=== PATIENT | male | born 1950 | race Caucasian/White ===

== ENCOUNTER 2017-07-10 09:33 | Inpatient (IN) | payer OTHER ==
[2017-07-10 10:30] LABS: BASOPHIL 0.8 % (0-2.0); EOSINOPHIL 0.6 % (0-4.5); MCH 27.9 pg (25.7-33.7); MEAN CELL VOLUME 84.4 fl (80-96); MEAN PLT VOLUME 8.3 fl (7.5-11.1); NEUTROPHILS 73.5 % (42.8-82.8); PLATELET COUNT 314 K/MM3 (134-434); RDW 14.7 % (11.9-15.9)
--- NOTE | 2017-07-10 10:49 | PDOC ---
History of Present Illness - General History Source: Patient, Family (Son), Spouse (Fiance) Exam Limitations: No Limitations - History of Present Illness Initial Comments: 07/10/17 10:58 The patient is a 67 year old male with a significant PMH of HTN, GERD, right eye glaucoma (s/p surgery), arthritis, psoriasis, and Lyme disease who presents with fiance and son to the emergency department with worsening dizziness and confusion beginning several months ago. The patients son reports that the patient has been intermittently fatigued and dizzy since the patients glaucoma surgery a few months ago. He notes that his dizziness has become significantly worse over the past 3 days with associated vomiting, dry mouth, and reduced appetite. The patients son reports an episode yesterday in which the patient was feeding his cat and lost control of his body, falling face first and sustaining several abrasions to the face. The patient also reports double vision since his eye surgery which is aggravated by turning his head and bending down. The patients fiance reports that the patient has been generally not himself for the past 3 weeks and has become increasingly confused (80% present, 20% confused). The patient also reports significant psoriasis to the abdomen and lower extremities, which remain unchanged from normal. The patient denies chest pain, shortness of breath, headache and dizziness. Denies fever, chills,diarrhea and constipation. Denies dysuria, frequency, urgency and hematuria. Allergies: Ciprofloxacin. Cortisone. Past surgical history: Glaucoma surgery. Social history: No reported toxic habits. PCP: Dr. Eduardo Davis <Reji Jovel - Last Filed: 07/10/17 14:14> - General History Source: Patient, Family Exam Limitations: No Limitations <Reji Trevino - Last Filed: 07/17/17 10:59> - General Chief Complaint: Lightheaded Stated Complaint: vertigo Time Seen by Provider: 07/10/17 09:59 Past History <Reji Jovel - Last Filed: 07/10/17 14:14> - Past Medical History COPD: No GI Disorders: Yes (gerd) HTN: Yes Other medical history: psorriasis, lyme disease, arthritis, glaucomea - Suicide/Smoking/Psychosocial Hx Smoking History: Never smoked Have you smoked in the past 12 months: No Information on smoking cessation initiated: No Hx Alcohol Use: No Drug/Substance Use Hx: No Substance Use Type: None <Reji Trevino - Last Filed: 07/17/17 10:59> - Past Medical History Allergies/Adverse Reactions: Allergies Allergy/AdvReac Type Severity Reaction Status Date / Time ciprofloxacin [From Cipro] Allergy Verified 07/10/17 10:01 ciprofloxacin HCl Allergy Verified 07/10/17 10:01 [From Cipro] cortisone Allergy Verified 07/10/17 10:02 Home Medications: Ambulatory Orders Aspirin [ASA -] 81 mg PO DAILY 07/10/17 Calcipotriene 0.005% Top Crm [Dovonex 0.005% Cream -] 60 gm TP ASDIR 07/10/17 Metoprolol Succinate [Toprol Xl] 50 mg PO BID 07/10/17 Naproxen [Naprosyn -] 500 mg PO BID 07/10/17 Brimonidine Tartrate [Alphagan P 0.1% -] 1 drop OU TID 07/12/17 Dorzolamide HCl/Timolol Maleat [Cosopt Eye Drops] 1 drop OU BID 07/12/17 Tafluprost/Pf [Zioptan 0.0015% Eye Drops] 1 drop OU HS 07/12/17 Triamcinolone 0.1% Cream [Aristocort] 1 applic TP DAILY 07/12/17 Review of Systems - Review of Systems Able to Perform ROS?: Yes Comments:: 07/10/17 10:58 GENERAL/CONSTITUTIONAL: (+) Generalized fatigue.No fever or chills. No weakness. HEAD, EYES, EARS, NOSE AND THROAT: (+) Double vision. No ear pain or discharge. No sore throat. CARDIOVASCULAR: No chest pain or shortness of breath. RESPIRATORY: No cough, wheezing, or hemoptysis. GASTROINTESTINAL: (+) Nausea. (+) Vomiting. No diarrhea or constipation. GENITOURINARY: No dysuria, frequency, or change in urination. MUSCULOSKELETAL: No joint or muscle swelling or pain. No neck or back pain. SKIN: (+) Several abrasions to face. NEUROLOGIC: (+) Confusion. No headache, vertigo, loss of consciousness, or change in strength. ENDOCRINE: No increased thirst. No abnormal weight change. HEMATOLOGIC/LYMPHATIC: No anemia, easy bleeding, or history of blood clots. ALLERGIC/IMMUNOLOGIC: No hives or skin allergy. <Jovel,Reji - Last Filed: 07/10/17 14:14> *Physical Exam - Vital Signs Last Vital Signs Temp Pulse Resp BP Pulse Ox 99 F 105 H 18 147/85 100 07/10/17 09:35 07/10/17 09:35 07/10/17 09:35 07/10/17 09:35 07/10/17 09:35 - Physical Exam Comments: 07/10/17 10:58 GENERAL: Awake, alert, and fully oriented, in no acute distress HEAD: (+) 1x2cm. small abrasion to upper forehead. (+) 2x2cm. small abrasion to bridge of nose. EYES: PERRLA, EOMI, sclera anicteric, conjunctiva clear ENT: (+) Dry blood in right nares. (+) Dry mucosa. No septal hematoma. Auricles normal inspection, hearing grossly normal, nares patent, oropharynx clear without exudates. NECK: Normal ROM, supple, no lymphadenopathy, JVD, or masses LUNGS: Breath sounds equal, clear to auscultation bilaterally. No wheezes, and no crackles HEART: Regular rate and rhythm, normal S1 and S2, no murmurs, rubs or gallops ABDOMEN: Soft, nontender, normoactive bowel sounds. No guarding, no rebound. No masses EXTREMITIES: Normal range of motion, no edema. No clubbing or cyanosis. No cords, erythema, or tenderness. NEUROLOGICAL: Cranial nerves II through XII intact. 5/5 strength upper and lower extremities. Sensation intact throughout. No pronator drift. Finger to nose normal. Normal speech. SKIN: Warm, Dry, normal turgor, no rashes or lesions noted. <Reji Jovel - Last Filed: 07/10/17 14:14> - Vital Signs Last Vital Signs Temp Pulse Resp BP Pulse Ox 99 F 105 H 18 147/85 100 07/10/17 09:35 07/10/17 09:35 07/10/17 09:35 07/10/17 09:35 07/10/17 09:35 <Reji Trevino - Last Filed: 07/17/17 10:59> Heart Score/ECG Review #1 ECG reviewed & interpreted by me at: 09:50 07/10/17 10:49 NSR 96, no std/cecil, TWI V3, RBBB, QTC 457 msec <Reji Trevino - Last Filed: 07/17/17 10:59> ED Treatment Course - LABORATORY CBC & Chemistry Diagram: 07/10/17 10:15 07/10/17 10:15 - ADDITIONAL ORDERS Additional order review: Laboratory Results 07/10/17 10:15 PT with INR 11.50 INR 1.02 PTT (Actin FS) 32.7 07/10/17 10:15 RBC 5.64 H MCV 84.4 MCHC 33.0 RDW 14.7 MPV 8.3 Neutrophils % 73.5 Lymphocytes % 15.1 Monocytes % 10.0 Eosinophils % 0.6 Basophils % 0.8 - Consult/PCP Time Called: 11:35 Case discussed with personal care physician: Kevin Davis - Additional Consults Consult/PCP: Dr. Last (Neuro), Dr. Hooks (Opthamology) Consult/PCP: Dr. Persaud (Neurosurg) Reason/Comments: Called 4 times (12:10, 12:30, 13:10, 14:00) before receiving callback. <Reji Jovel - Last Filed: 07/10/17 14:14> - LABORATORY CBC & Chemistry Diagram: 07/12/17 06:00 07/12/17 06:00 - ADDITIONAL ORDERS Additional order review: 07/10/17 10:15 RBC 5.64 H MCV 84.4 MCHC 33.0 RDW 14.7 MPV 8.3 Neutrophils % 73.5 Lymphocytes % 15.1 Monocytes % 10.0 Eosinophils % 0.6 Basophils % 0.8 - RADIOLOGY Radiology Studies Ordered: Category Date Time Status FACIAL BONES CT W/O CONTRAST [CT] Stat CT Scan 07/10/17 10:[address] WITHOUT CONTRAST [CT] Stat CT Scan 07/10/17 10:02 Ordered CHEST X-RAY PORTABLE* [RAD] Stat Radiology 07/10/17 10:02 Ordered <Reji Trevino - Last Filed: 07/17/17 10:59> Medical Decision Making - Critical Care Time Total Critical Care Time (minutes): 45 Critical Care Statement: The care of this patient involved high complexity decision making to prevent further life threatening deterioration of the patient 's condition and/or to evaluate & treat vital organ system(s) failure or risk of failure. - Medical Decision Making 07/10/17 10:44 A portion of this note was documented by scribe services under my direction. I have reviewed the details of the note, within reason, and agree with the documentation with the following case summary and management plan written by me. Patient treated in the ED. Nursing notes are reviewed and incorporated into the medical decision-making. Vital signs reviewed. Peripheral IV access obtained by the nurse, laboratory studies are drawn and sent, reviewed and interpreted by myself. Vital Signs Temp Pulse Resp BP Pulse Ox 99 F 105 H 18 147/85 100 07/10/17 09:35 07/10/17 09:35 07/10/17 09:35 07/10/17 09:35 07/10/17 09:35 67 -year-old male with glaucoma, psoriasis, hypertension, severe arthritis on NSAIDs brought in for altered mental status, confusion. The family reports that he had a right glaucoma surgery several months ago. Since then, the patient has been endorsing intermittent vertiginous and fatigue symptoms. However, in the last several days, the patient has been recently more confused and delirious and more dizzy than usual. Today, the patient went to walk and lost balance and fell on his face. Her is questionable loss of consciousness. Patient does take NSAIDs and occasionally aspirin but no other anticoagulants. Patient has no lacerations were sustained abrasions to the face. There is no fevers or chills, cough, vomiting, diarrhea, dysuria. Patient does have pretty significant psoriasis on his lower extremities that he scratches at. The family is unsure if the erythema on his legs is chronic but the patient reports that this is unchanged. Within the differential is CVA, metabolic disarray, cardiac, neurologic, infection such as cellulitis of the lower extremity. The patient will need a head CT, facial CT, labs, urinalysis. Patient will need to evaluated with likely an MRI of the brain. Ultimately, I suspect patient admitted to the hospital for altered mental status. 07/10/17 15:05 CAT scan the head demonstrates heterogeneous space-occupying lesion center with the inferior parasagittal left frontal lobe as described above measuring proximal a 6.5 x 3.5 x 3.7 cm with small volume peripheral acute hemorrhage. There is also edema surrounding this lesion with 11 mm [id number] midline shift and compression the frontal horn of the left ventricle. Case was discussed with neurologist DR. Last and neurosurgeon Dr. Persaud. They have recommended IV Keppra and IV steroids. Initially, the patient was very resistant to IV steroids given to his refractory glaucoma. He did not want to be given this medication without the consultation of his awning maker and installer. I have spoken to his awning maker and installer Dr. Juliano Hooks [phone] who completely agrees the necessity of IV steroids and states we should give it. Patient agrees to 10 mg dexamethasone. 500 mg of IV Keppra twice a day ordered. Case is discussed with bandoleer packer Dr. Pisano which is the patient's the ICU. Case accepted by Dr. Davis. Case discussed in detail with admitting physician including history, physical exam and ancillary studies. Admitting physician has assumed care for the patient, will follow all pending diagnostics and will complete the evaluation and treatment. 07/10/17 20:18 Pt did have a moment where he seemed less responsive, speaking in one word and lethargic. We were deciding between intubating versus not intubating. However, lengthy discussion, family requested that I observe the patient before I decide to intubate. After observation, patient returned to be more alert and speaking. We had decided to defer on intubation. Patient has been moving quite a bit and anxious when in MRI. We had attempted 3 times to bring him to MRI even with ativan. However, pt is unable to tolerate. Dr. Onofre Persaud had returned to the ER and re-examined the patient. States to defer on MRI and to get Head CT with IV contrast instead. Family consents. <Reji Trevino - Last Filed: 07/17/17 10:59> *DC/Admit/Observation/Transfer - Attestations Scribe Attestion: 07/10/17 10:59 Documentation prepared by Reji Jovel, acting as medical care evaluation specialist for Reji Trevino MD. <Reji Jovel - Last Filed: 07/10/17 14:14> - Discharge Dispostion Admit: Yes <Reji Trevino - Last Filed: 07/17/17 10:59> Diagnosis at time of Disposition: Brain mass - Discharge Dispostion Disposition: TRANSFER ACUTE CARE/OTHER HOSP Condition at time of disposition: Guarded
[2017-07-10 10:51] LABS: INR 1.02 (0.82-1.09); PROTHROMBIN TIME (PATIENT) 11.5 SEC (9.98-11.88)
[2017-07-10 10:54] LABS: ACTIVATED PTT 32.7 SECONDS (26.9-34.4)
[2017-07-10 11:01] LABS: ALBUMIN 3.7 g/dl (3.4-5.0); ALK PHOS 64 U/L (45-117); ANION GAP 10 (8-16); CALCIUM 9.3 mg/dL (8.5-10.1); CO2 27 mmol/L (21-32); CPK 72 IU/L (39-308); CREATININE 1.5 mg/dL (0.7-1.3); GLUCOSE,RANDOM 126 mg/dL (74-106); SGOT/AST 20 U/L (15-37); SGPT/ALT 41 U/L (12-78); TOT PROT 7.7 g/dl (6.4-8.2)
[2017-07-10 11:05] LABS: BILIRUBIN,TOTAL 0.9 mg/dL (0.2-1.0); TROPONIN I < 0.02 ng/ml (0.00-0.05)
[2017-07-10 11:55] LABS: SALICYLATE < 4.0 mg/dl (0.0-30.0)
--- NOTE | 2017-07-10 12:03 | CONSULT ---
Consult - text type - Consultation Consultation Note: Neurology History of Present Illness The patient is a 67 year old male with a significant PMH of HTN, GERD, right eye glaucoma (s/p surgery), arthritis, psoriasis, and Lyme disease who presents with fiance and son to the emergency department with worsening dizziness and confusion beginning several months ago. The patients son reports that the patient has been intermittently fatigued and dizzy since the patients glaucoma surgery a few months ago. He notes that his dizziness has become significantly worse over the past 3 days with associated vomiting, dry mouth, and reduced appetite. The patients son reports an episode yesterday in which the patient was feeding his cat and lost control of his body, falling face first and sustaining several abrasions to the face. The patient also reports double vision since his eye surgery which is aggravated by turning his head and bending down. The patients fiance reports that the patient has been generally not himself for the past 3 weeks and has become increasingly confused (80% present, 20% confused). The patient also reports significant psoriasis to the abdomen and lower extremities, which remain unchanged from normal. The patient was seen by me in the ER and head and discussion with Dr. Trevino, we were in agreement to have completed a CT head. report and images have been reviewed re consistent with left frontal 6.5 x 3.5 x 3.7 cm growth along with acute hemorrhagic component that is 1.1 cm in size. There is cerebral edema along with sulcal effacement. There is 11mm left to right shift. 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 I spoke with Dr. Trevino and we discussed having neurosurgical consultation. I also recommended IV steroids for reduction of edema as well as Keppra for seizure prevention. This growth does explain the patient's confusion and mental status changes. A contrast enhanced MRI of the brain would be recommended. Past History - Past Medical History COPD: No GI Disorders: Yes (gerd) HTN: Yes Other medical history: psorriasis, lyme disease, arthritis, glaucomea - Suicide/Smoking/Psychosocial Hx Smoking History: Never smoked Have you smoked in the past 12 months: No Information on smoking cessation initiated: No Hx Alcohol Use: No Drug/Substance Use Hx: No Substance Use Type: None - Past Medical History Allergies/Adverse Reactions: Allergies Allergy/AdvReac Type Severity Reaction Status Date / Time ciprofloxacin [From Cipro] Allergy Verified 07/10/17 10:01 ciprofloxacin HCl Allergy Verified 07/10/17 10:01 [From Cipro] cortisone Allergy Verified 07/10/17 10:02 Home Medications: Ambulatory Orders Aspirin [ASA -] 81 mg PO DAILY 07/10/17 Calcipotriene 0.005% Top Crm [Dovonex 0.005% Cream -] 60 gm TP ASDIR 07/10/17 Metoprolol Succinate [Toprol Xl] 50 mg PO BID 07/10/17 Naproxen [Naprosyn -] 500 mg PO BID 07/10/17 Review of Systems GENERAL/CONSTITUTIONAL: (+) Generalized fatigue.No fever or chills. No weakness. HEAD, EYES, EARS, NOSE AND THROAT: (+) Double vision. No ear pain or discharge. No sore throat. CARDIOVASCULAR: No chest pain or shortness of breath. RESPIRATORY: No cough, wheezing, or hemoptysis. GASTROINTESTINAL: (+) Nausea. (+) Vomiting. No diarrhea or constipation. GENITOURINARY: No dysuria, frequency, or change in urination. MUSCULOSKELETAL: No joint or muscle swelling or pain. No neck or back pain. SKIN: (+) Several abrasions to face. NEUROLOGIC: (+) Confusion. No headache, vertigo, loss of consciousness, or change in strength. ENDOCRINE: No increased thirst. No abnormal weight change. HEMATOLOGIC/LYMPHATIC: No anemia, easy bleeding, or history of blood clots. ALLERGIC/IMMUNOLOGIC: No hives or skin allergy. *Physical Exam Vital Signs Temperature 99 F 07/10/17 09:35 Pulse Rate 105 H 07/10/17 09:35 Respiratory Rate 18 07/10/17 09:35 Blood Pressure 147/85 07/10/17 09:35 O2 Sat by Pulse Oximetry (%) 100 07/10/17 09:35 GENERAL: Awake, alert, and fully oriented, in no acute distress, irritable but cooperative HEAD: (+) 1x2cm. small abrasion to upper forehead. (+) 2x2cm. small abrasion to bridge of nose. EYES: PERRLA, EOMI, sclera anicteric, conjunctiva clear ENT: (+) Dry blood in right nares. (+) Dry mucosa. No septal hematoma. Auricles normal inspection, hearing grossly normal, nares patent, oropharynx clear without exudates. NECK: Normal ROM, supple, no lymphadenopathy, JVD, or masses LUNGS: Breath sounds equal, clear to auscultation bilaterally. No wheezes, and no crackles HEART: Regular rate and rhythm, normal S1 and S2, no murmurs, rubs or gallops ABDOMEN: Soft, nontender, normoactive bowel sounds. No guarding, no rebound. No masses EXTREMITIES: Normal range of motion, no edema. No clubbing or cyanosis. No cords, erythema, or tenderness. NEUROLOGICAL: Cranial nerves II through XII intact. 5/5 strength upper and lower extremities. Sensation intact throughout. No pronator drift. Finger to nose normal. Normal speech. SKIN: Warm, Dry, normal turgor, no rashes or lesions noted. CBCD WBC 12.0 K/mm3 (4.0-10.0) H 07/10/17 10:15 RBC 5.64 M/mm3 (4.00-5.60) H 07/10/17 10:15 Hgb 15.7 GM/dL (11.7-16.9) 07/10/17 10:15 Hct 47.6 % (35.4-49) 07/10/17 10:15 MCV 84.4 fl (80-96) 07/10/17 10:15 MCHC 33.0 g/dl (32.0-35.9) 07/10/17 10:15 RDW 14.7 % (11.9-15.9) 07/10/17 10:15 Plt Count 314 K/MM3 (134-434) 07/10/17 10:15 MPV 8.3 fl (7.5-11.1) 07/10/17 10:15 CMP Sodium 142 mmol/L (136-145) 07/10/17 10:15 Potassium 3.7 mmol/L (3.5-5.1) 07/10/17 10:15 Chloride 105 mmol/L (98-107) 07/10/17 10:15 Carbon Dioxide 27 mmol/L (21-32) 07/10/17 10:15 Anion Gap 10 (8-16) 07/10/17 10:15 BUN 21 mg/dL (7-18) H 07/10/17 10:15 Creatinine 1.5 mg/dL (0.7-1.3) H 07/10/17 10:15 Creat Clearance w eGFR 46.82 (>60) 07/10/17 10:15 Calcium 9.3 mg/dL (8.5-10.1) 07/10/17 10:15 Total Bilirubin 0.9 mg/dL (0.2-1.0) 07/10/17 10:15 AST 20 U/L (15-37) 07/10/17 10:15 ALT 41 U/L (12-78) 07/10/17 10:15 Alkaline Phosphatase 64 U/L (45-117) 07/10/17 10:15 Total Protein 7.7 g/dl (6.4-8.2) 07/10/17 10:15 Albumin 3.7 g/dl (3.4-5.0) 07/10/17 10:15 CT head reviewed as above Medical Decision Making 67 year old male with a significant PMH of HTN, GERD, right eye glaucoma (s/p surgery), arthritis, psoriasis, and Lyme disease who presents with fiance and son to the emergency department with worsening dizziness and confusion beginning several months ago. The patients son reports that the patient has been intermittently fatigued and dizzy since the patients glaucoma surgery a few months ago. He notes that his dizziness has become significantly worse over the past 3 days with associated vomiting, dry mouth, and reduced appetite. The patients son reports an episode yesterday in which the patient was feeding his cat and lost control of his body, falling face first and sustaining several abrasions to the face. The patient also reports double vision since his eye surgery which is aggravated by turning his head and bending down. The patients fiance reports that the patient has been generally not himself for the past 3 weeks and has become increasingly confused (80% present, 20% confused). The patient also reports significant psoriasis to the abdomen and lower extremities , which remain unchanged from normal. Left frontal 6.5 x 3.5 x 3.7 cm growth along with acute hemorrhagic component that is 1.1 cm in size. Cerebral edema along with sulcal effacement. 11mm left to right shift. Possibly glial neoplasm. IV steroids recommended for reduction of edema Keppra 500mg twice daily for seizure prevention. Contrast enhanced MRI of the brain would be recommended NSGY consult recommended BP control for acute hemoraghic component, recommend maintaining close to or below 140/90 ICU monitoring Hold ASA/antiplatelet medication for now Repeat CT head in AM or if acute deterioration in mental status Critical care time 45 minutes
[2017-07-10] MEDS ORDERED: levETIRAcetam 500 MG/5 ML INJECTION VIAL IVPB ONE (12:57)
--- NOTE | 2017-07-10 13:24 | HP ---
Admitting History and Physical - Primary Care Physician PCP: Kevin Davis - Admission History of Present Illness: The patient is a 67 year old male with a significant PMH of HTN, GERD, right eye glaucoma (s/p surgery), arthritis, psoriasis, and Lyme disease who presents with fiance and son to the emergency department with worsening dizziness and confusion beginning several months ago. The patients son reports that the patient has been intermittently fatigued and dizzy since the patients glaucoma surgery a few months ago. He notes that his dizziness has become significantly worse over the past 3 days with associated vomiting, dry mouth, and reduced appetite. The patients son reports an episode yesterday in which the patient was feeding his cat and lost control of his body, falling face first and sustaining several abrasions to the face. The patient also reports double vision since his eye surgery which is aggravated by turning his head and bending down. The patients fiance reports that the patient has been generally not himself for the past 3 weeks and has become increasingly confused (80% present, 20% confused). The patient also reports significant psoriasis to the abdomen and lower extremities, which remain unchanged from normal. The patient denies chest pain, shortness of breath, headache and dizziness. Denies fever, chills,diarrhea and constipation. Denies dysuria, frequency, urgency and hematuria. denies abdominal pain Allergies: Ciprofloxacin. Cortisone. Past surgical history: Glaucoma surgery. Social history: No reported toxic habits. I was called earlier by patient's fianc--regarding patient's symptoms and I advised them to take him to the emergency room as soon as possible CAT scan done in the emergency room showed left frontal mass with mass effect-- With small hemorrhagic component Patient seen by me in the emergency room Family at bedside Case discussed with emergency room physician also I also discussed CAT scan findings with patient and patient's family Neurosurgical consult also requested patient was last seen in office in December 2016 for right eye glaucoma surgery clearance--patient did not follow-up to that History Source: Patient, Family Member Limitations to Obtaining History: Clinical Condition - Smoking History Smoking history: Never smoked Have you smoked in the past 12 months: No - Alcohol/Substance Use Hx Alcohol Use: No Home Medications - Allergies Allergies/Adverse Reactions: Allergies Allergy/AdvReac Type Severity Reaction Status Date / Time ciprofloxacin [From Cipro] Allergy Verified 07/10/17 10:01 ciprofloxacin HCl Allergy Verified 07/10/17 10:01 [From Cipro] cortisone Allergy Verified 07/10/17 10:02 - Home Medications Home Medications: Ambulatory Orders Aspirin [ASA -] 81 mg PO DAILY 07/10/17 Calcipotriene 0.005% Top Crm [Dovonex 0.005% Cream -] 60 gm TP ASDIR 07/10/17 Metoprolol Succinate [Toprol Xl] 50 mg PO BID 07/10/17 Naproxen [Naprosyn -] 500 mg PO BID 07/10/17 Family Disease History - Family Disease History Family History: Unremarkable Family Disease History: Other: Mother (leukemia and breast cancer) Review of Systems Findings/Remarks: see council - Review of Systems Constitutional: reports: Weakness Eyes: denies: No Symptoms Physical Examination Vital Signs: Vital Signs Temperature 99 F 07/10/17 09:35 Pulse Rate 105 H 07/10/17 09:35 Respiratory Rate 18 07/10/17 09:35 Blood Pressure 147/85 07/10/17 09:35 O2 Sat by Pulse Oximetry (%) 100 07/10/17 09:35 Constitutional: Yes: No Distress, Other (looks weak) Neck: Yes: Supple, Trachea Midline Cardiovascular: Yes: Regular Rate and Rhythm Respiratory: Yes: CTA Bilaterally Gastrointestinal: Yes: Normal Bowel Sounds, Soft Edema: No Integumentary: Yes: Erythema (consistant with psoriasis) Neurological: Yes: Alert (non focal- moves all extremities) Psychiatric: Yes: Alert Labs: CBC, BMP 07/10/17 10:15 07/10/17 10:15 Imaging - Results Chest X-ray: Report Reviewed Cat Scan: Report Reviewed EKG: Report Reviewed Problem List - Problems (1) Brain mass Code(s): G93.9 - DISORDER OF BRAIN, UNSPECIFIED (2) Glaucoma Code(s): H40.9 - UNSPECIFIED GLAUCOMA (3) Hypertension Code(s): I10 - ESSENTIAL (PRIMARY) HYPERTENSION (4) Psoriasis Code(s): L40.9 - PSORIASIS, UNSPECIFIED Assessment/Plan Discussed with emergency room physician in detail. Neurology consultation noted/ appreciated will discuss with Dr. Last. Consider transfer to tertiary care center Urgent neurosurgical evaluation--Dr. Hollis Persaud. 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 will follow. cc time 40 min.
[2017-07-10] MEDS: levETIRAcetam 500 MG/5 ML INJECTION VIAL IVPB SCH ×2 (13:30→21:54)
[2017-07-10] MEDS ORDERED: DEXAMETHASONE SOD PHOSPHATE 20 MG/5 ML VIAL IVPB ONE (14:33)
[2017-07-10] MEDS ORDERED: ACETAMINOPHEN 1000 MG/100 ML VIAL (NON FORMULARY) IVPB ONE (14:33)
[2017-07-10 15:09] LABS: URINE APPEARANCE SLCLOUDY; URINE BILIRUBIN NEGATIVE (NEGATIVE); URINE BLOOD NEGATIVE (NEGATIVE); URINE COLOR YELLOW; URINE GLUCOSE (UA) NEGATIVE (NEGATIVE); URINE KETONE 1+ (NEGATIVE); URINE NITRITE NEGATIVE (NEGATIVE); URINE UROBILINOGEN NEGATIVE mg/dL (0.2-1.0)
--- NOTE | 2017-07-10 15:11 | PN ---
Progress Note (short form) - Note Progress Note: NEUROSURGERY CONSULT DICTATED Pt examined Chart reviewed History obtained Significant other and son at bedside in ED H/o HTN, GERD, right eye glaucoma (recent surgery), arthritis, psoriasis, and Lyme's disease who presents with worsening dizziness and confusion beginning several months ago after glaucoma surgery. He notes that his dizziness has become significantly worse over the past 3 days with associated H/A, vomiting. Pt had become more confused and lost balance and fell several times in the past few weeks. Denies systemic malignancy, fever/chill, recent infections, or extensive dental work. PE: T 99, AF, 147/85,VSS HEENT- facial/nasal abrasions; Neck- supple; Cor- RR; Lungs- CTA B; Abd- benign , + BS, mildly obese; Ext- no sign of DVT; psoriasis A/A/Ox3 CN- intact; Motor- at least 4+ without drift; Sensation- intact LT, vibration; DTR- 1+; toes downgoing WBC 12, Hgb 15.7, platelet 374k; Cr 1.5; BUN 21, eGFR 46.82 CT head- L frontal 6 x4 cm hypodense lesion with surrounding hypodense rim, 1 cm L to R shift frontally R/o GBM vs abscess, though no history or risks factors of infection/cerebral abscess Brain MRI with and without jessie recommended, keep well hydrated given marginal renal function Decadron/protonix/keppra recommended Will likely need biopsy to establish diagnosis Baseline blood cultures and urine culture D/w pt and family at bedside Care D/w Dr Trevino
[2017-07-10 15:12] LABS: URINE MARIJUANA THC NEGATIVE ng/ml (CUTOFF=50); URINE PROTEIN 1+ (NEGATIVE)
[2017-07-10] MEDS ORDERED: DEXAMETHASONE SOD PHOSPHATE 10 MG/1 ML VIAL ONE ×2 (15:12→15:16)
[2017-07-10 15:21] LABS: URINE MUCUS FEW; URINE RBC 1; URINE WBC < 1
[2017-07-10] MEDS ORDERED: ACETAMINOPHEN INJECTION 100 ML IVPB ONE (15:23)
[2017-07-10] MEDS ORDERED: ETOMIDATE 20 MG/10 ML AMPUL IVPUSH ONE (15:35)
[2017-07-10] MEDS ORDERED: SUCCINYLCHOLINE CHLORIDE 200 MG/10 ML VIAL ONE (15:42)
[2017-07-10] MEDS ORDERED: SODIUM CHLORIDE 1,000 ML IV STA (17:48)
[2017-07-10] MEDS ORDERED: LORazepam 2 MG/ML SDV VIAL ONE ×2 (18:17→19:36)
[2017-07-10 18:27] VITALS: BMI 28.5
[2017-07-10 20:10] LABS: URINE LEUK ESTERASE Negative (NEGATIVE)
--- NOTE | 2017-07-10 21:03 | CONS ---
DATE OF CONSULTATION: 07/10/2017 REQUESTING PHYSICIAN: Dr. Trevino with the emergency department. CHIEF COMPLAINT: Headache and vomiting with intracranial lesion. HISTORY OF PRESENT ILLNESS: The patient is a 67-year-old, right-handed male with a history of hypertension, arthritis, psoriasis, Lyme disease, and gastroesophageal reflux disease, and recent right eye glaucoma surgery, who complains of several weeks' history of increasing dizziness and confusion for several weeks' duration. This mostly occurred since the glaucoma procedure. He denies headache until a few days ago. He also has associated vomiting. He has fallen a few times after losing balance over the past few weeks. He denied any fever, chills, or any recent infection. He has no history of primary sustained malignancy. He has not undergone any recent extensive dental work by report. PAST MEDICAL HISTORY: Significant for hypertension, glaucoma status post surgery, psoriasis, arthritis, Lyme disease, and gastroesophageal reflux disease. CURRENT MEDICATIONS: Include baby aspirin, Dovonex cream, metoprolol, and naproxen. ALLERGIES: CIPROFLOXACIN and CORTISONE. SOCIAL HISTORY: He does not smoke or drink. He is retired. He lives at home. FAMILY HISTORY: Noncontributory. REVIEW OF SYSTEMS: Otherwise negative for other major constitutional, head and neck, cardiovascular, pulmonary, gastrointestinal, genitourinary, endocrinological, neurological, and psychological problems except for the above. PHYSICAL EXAMINATION: Vital Signs: Temperature is 99. Blood pressure is 147/85 with pulse rate of 105. O2 saturation is 100% on room air. General: He is accompanied by his fiance and his son in the emergency department. HEENT: Examination shows him to be normocephalic. He does have several abrasions over the nose and the forehead from a fall earlier today. Neck: Supple with no carotid bruit. Coronary: Examination demonstrated a regular rhythm. Lungs: Clear bilaterally. Abdomen: Benign. Extremities: Examination showed no signs of DVT. Distal pulses are 1+ and symmetric. There is no obvious fracture. Neurologic: He is awake, alert, and oriented x3. Cranial nerve examination is intact 2-12. Motor examination shows at least 4+/5 strength in the bilateral upper and lower extremities without drift. Sensory examination is intact to light touch and vibratory sensation. Deep tendon reflexes are 1+ throughout. There is no pathologic long tract sign. Gait is not tested for safety reasons. Cerebellar examination demonstrated intact [id number] examination. LABORATORY: Examination shows a sodium to be 142 and potassium to be 3.7. BUN is 21 and creatinine 1.5. Estimated GFR is 46.82. Glucose is 126. Troponin is less than 0.02, INR is 1.02, and PTT is 32.7. White blood cell count is 12, hemoglobin is 15.7, platelet count is 314,000. Urinalysis shows 1+ ketone and 1+ protein. Leukocyte esterase is pending as is WBC and RBC. CT scan of the head demonstrated a hypodense left white matter medial frontal lesion of approximately 6 x 4 cm. There is also a hyperdense rim along the periphery, mostly posterior and medially as well as laterally. There is vasogenic edema. There is an approximately 10-mm [id number] shift anteriorly. There is slight mass effect on the frontal horn of the left lateral ventricle. IMPRESSION: 1. Left frontal lesion with surrounding hyperdense rim, rule out glioblastoma versus a brain abscess. 2. Hypertension. 3. Psoriasis. 4. Osteoarthritis. 5. Gastroesophageal reflux disease. RECOMMENDATIONS: The patient presents with several weeks' history including confusion and dizziness. He has also been falling. Examination is relatively nonfocal. A CT scan of the head demonstrated a left medial frontal lesion of approximately 6 x 4 cm with surrounding hypodense rim. There is also left-to- right shift as a result of the edema and mass effect. 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 The patient should undergo an MRI of the brain with and without gadolinium to better delineate the nature of the disease. Decadron and Protonix should also be considered to treat the edema. The patient will likely require surgical intervention at least for a biopsy to establish diagnosis. Baseline blood culture and urine culture will be ordered. The patient should be kept on Keppra for seizure prophylaxis. The above was discussed with the patient and his family at the bedside. All questions were answered. GORDO BOND M.D. YAZMIN/[id number] MTDD
--- NOTE | 2017-07-10 21:18 | CONSULT ---
Consult Consult Specialty:: Pulm/CCM Reason for Consultation:: brain mass - History of Present Illness Chief Complaint: AMS, n/v, falls History of Present Illness: This is a 67 yo man PMH: HTN, glaucoma, arthritis, psoriasis and GERD with several months of increasing confusion with progressive dizziness, nausea and vomiting (NBNB) over the last three days resulting in a multiple falls and facial trauma. Patient was brought to ED for evaluation. In ED patient had small 1x2cm abrasion to upper forehead and 2x2cm. small abrasion to bridge of nose. CT head showed a large left frontal mass with small hemorrhagic component and mass effect. Neurosurgery was consulted and recommended MRI which they were unable to perform 2/2 agitation despite ativan pushes. Keppra was started for seizure prophylaxis. Patient transferred to ICU for continued monitoring and care. In ICU patient sedated, not following commands, moving all extremities spontaneously. VSS: HR 99, BP: 120/74 RR 18 sat 100% Per family patient has been relatively house bound the last three weeks w/ vertigo, headaches, nausea and confusion. The last three days he has been bed bound unable to tolerate any po intake, when he has attempted to ambulate he has suffered multiple falls. - History Source History Provided By: Family Member, Medical Record Limitations to Obtaining History: Uncooperative - Past Medical History Cardio/Vascular: Yes: HTN Dermatology: Yes: Psoriasis - Alcohol/Substance Use Hx Alcohol Use: No - Smoking History Smoking history: Never smoked Have you smoked in the past 12 months: No - Social History Usual Living Arrangement: With Significant Other Home Medications - Allergies Allergies/Adverse Reactions: Allergies Allergy/AdvReac Type Severity Reaction Status Date / Time ciprofloxacin [From Cipro] Allergy Verified 07/10/17 10:01 ciprofloxacin HCl Allergy Verified 07/10/17 10:01 [From Cipro] cortisone Allergy Verified 07/10/17 10:02 - Home Medications Home Medications: Ambulatory Orders Aspirin [ASA -] 81 mg PO DAILY 07/10/17 Calcipotriene 0.005% Top Crm [Dovonex 0.005% Cream -] 60 gm TP ASDIR 07/10/17 Metoprolol Succinate [Toprol Xl] 50 mg PO BID 07/10/17 Naproxen [Naprosyn -] 500 mg PO BID 07/10/17 Family Disease History - Family Disease History Family History: Unable to Obtain Family Disease History: Other: Mother (leukemia and breast cancer) Review of Systems Unable to obtain ROS, reason: AMS Physical Exam Vital Signs: Vital Signs Temperature 98.1 F 07/10/17 12:00 Pulse Rate 111 H 07/10/17 20:19 Respiratory Rate 20 07/10/17 21:09 Blood Pressure 101/82 07/10/17 20:19 O2 Sat by Pulse Oximetry (%) 99 07/10/17 21:09 Constitutional: Yes: Calm Eyes: Yes: PERRL HENT: Yes: Other ( small 1x2cm abrasion to upper forehead and 2x2cm) Cardiovascular: Yes: Regular Rate and Rhythm Respiratory: Yes: CTA Bilaterally Gastrointestinal: Yes: Normal Bowel Sounds, Soft, Abdomen, Obese Edema: LLE: Trace, RLE: Trace Integumentary: Yes: Other (Large scaly plaques to chest/abdomen, arms and legs) Neurological: Yes: Other (GAGE, not following verbal commands, localizes to noxious stimlation bilateral) Labs: CBC, BMP 07/10/17 10:15 07/10/17 10:15 Imaging - Results Chest X-ray: Report Reviewed, Image Reviewed Cat Scan: Report Reviewed, Image Reviewed Problem List - Problems (1) Brain mass Code(s): G93.9 - DISORDER OF BRAIN, UNSPECIFIED (2) Glaucoma Code(s): H40.9 - UNSPECIFIED GLAUCOMA (3) Hypertension Code(s): I10 - ESSENTIAL (PRIMARY) HYPERTENSION (4) Psoriasis Code(s): L40.9 - PSORIASIS, UNSPECIFIED Assessment/Plan a/p: 67 yo man with progressive n/v, headaches, lethargy, confusion and weakness resulting in a fall found to have large left frontal mass with small hemorrhagic component and mass effect c/f malignancy vs infectious, unclear if he is on immunomodulators for psoriasis. Patient with VIDAL SCr 1.5 likely 2/2 pre -renal for poor po intake given decreased pos. -IV fluids -O2 for sat >90% -cont home eye drops -Neuro surgery following -repeat imaging per neurology -cont keppra for seizure prophylaxis -cont decadron for swelling/mass effect -cont topical ointment for psoriasis -possible debulking vs biopsy per neurosurg -SCD for DVT prophylaxis given hemorrhagic component and mass effect -GI prophylaxis given h/o GERD Boerem ACNP Pulm/CCM CCT: 35m
[2017-07-10] MEDS: DEXTROSE 5%-NORMAL SALINE 1,000 ML IV SCH (21:54)
[2017-07-10] MEDS: FAMOTIDINE 20 MG/50 ML IVPB 20 MG/50 ML MG IVPB SCH ×2 (21:55→22:00)
[2017-07-10] MEDS ORDERED: METOPROLOL TARTRATE 50 MG TABLET (FP) PO SCH (22:00)
[2017-07-11] MEDS: LORazepam 2 MG/ML SDV VIAL IVPUSH PRN ×2 (00:01→20:58)
[2017-07-11] MEDS: DORZOLAMIDE 2% HCL OPHTHALMIC SOLUTION 10 ML BOTTLE OU SCH ×3 (00:21→21:00)
[2017-07-11] MEDS ORDERED: METOPROLOL TARTRATE 5 MG/5 ML VIAL ONE (01:58)
[2017-07-11] MEDS: METOPROLOL TARTRATE 5 MG/5 ML VIAL IVPUSH PRN ×3 (02:07→15:43)
[2017-07-11] MEDS ORDERED: hydrALAZINE HCL 20 MG/ML VIAL ONE (03:36)
[2017-07-11] MEDS ORDERED: hydrALAZINE HCL 20 MG/ML VIAL IVPUSH ONE (03:45)
--- NOTE | 2017-07-11 08:13 | PN ---
Progress Note (short form) - Note Progress Note: NEUROSURGERY Several weeks h/o some behavioral changes & falls and recent H/A and vomiting; had refused to come to the ED as recently as a couple days ago Attempted MRI on a couple occasions with sedation from ED but unable to cooperate Also attempted head CT with contrast but similarly could not cooperate Care d/w significant other x2 yesterday PE: T 99, AF, 147/85,VSS HEENT- facial/nasal abrasions stable; Neck- supple; Cor- RR; Lungs- CTA B; Abd- benign, + BS, mildly obese; Ext- no sign of DVT; psoriasis Drowsy, easily arousable; mumbling CN- intact; Motor- at least 4+ without drift; Sensation- intact LT, vibration; DTR- 1+; toes downgoing CT head- L frontal 6 x4 cm hypodense lesion with surrounding hypodense rim mostly posteriorly, 1 cm L to R shift frontally R/o GBM with peripheral micro-hemorrhage> abscess, as no history or risks factors of infection/cerebral abscess Brain MRI with and without jessie recommended though pt has not cooperated Decadron/protonix/keppra Will likely need biopsy to establish definitive diagnosis to facilitate treatment Problematic as pt could not stay still long enough for CT with contrast, letting alone an MRI with jessie, which would be the preferred modality Further recommendations will depend on the availability of the imaging studies Baseline blood cultures and urine culture pending D/w RN Perhaps hold sedative to see if patient would be more alert and cooperative Repeat labs including BUN/Cr/eGFR pending
[2017-07-11 09:24] LABS: ANION GAP 7 (8-16); CALCIUM 9.2 mg/dL (8.5-10.1); CO2 27 mmol/L (21-32); GLUCOSE,RANDOM 120 mg/dL (74-106)
[2017-07-11] MEDS ORDERED: PT OWN MED DRAWER 7, Y5N ONE (09:24)
[2017-07-11 09:25] LABS: CREATININE 1.3 mg/dL (0.7-1.3); PHOSPHOROUS 3.1 mg/dL (2.5-4.9)
[2017-07-11] MEDS: levETIRAcetam 500 MG/5 ML INJECTION VIAL IVPB SCH ×2 (09:27→21:00)
[2017-07-11] MEDS: FAMOTIDINE 20 MG/50 ML IVPB 20 MG/50 ML MG IVPB SCH ×2 (09:27→21:00)
[2017-07-11] MEDS: DEXTROSE 5%-NORMAL SALINE 1,000 ML IV SCH ×2 (09:28→20:59)
[2017-07-11 09:29] LABS: MAGNESIUM 2.4 mg/dL (1.8-2.4)
--- NOTE | 2017-07-11 09:29 | PN ---
Physical Exam: SUBJECTIVE: Patient seen and examined at bedside. OBJECTIVE: Vital Signs Period Temp Pulse Resp BP Sys/[place]egas Pulse Ox Last 24 Hr 98.1 F-99.8 F 87-899 16-26 101-206/76-108 95-100 GENERAL: The patient is awake, alert, and fully oriented, in no acute distress. HEAD: Normal with no signs of trauma. EYES: PERRL, extraocular movements intact, sclera anicteric, conjunctiva clear. No ptosis. ENT: Ears normal, nares patent, oropharynx clear without exudates, moist mucous membranes. NECK: Trachea midline, full range of motion, supple. LUNGS: Breath sounds equal, clear to auscultation bilaterally, no wheezes, no crackles, no accessory muscle use. HEART: Regular rate and rhythm, S1, S2 without murmur, rub or gallop. ABDOMEN: Soft, nontender, nondistended, normoactive bowel sounds, no guarding, no rebound, no hepatosplenomegaly, no masses. EXTREMITIES: 2+ pulses, warm, well-perfused, no edema. NEUROLOGICAL: Cranial nerves II through XII grossly intact. Normal speech, gait not observed. PSYCH: Confused. Poorly responsive. Pt mumbles and repeats answers unintelligibly SKIN: Warm, dry, normal turgor, diffuse extensive erythematous scaly rash likely psoriatic Laboratory Results - last 24 hr 07/10/17 07/10/17 07/10/17 10:06 10:15 10:15 WBC 12.0 H RBC 5.64 H Hgb 15.7 Hct 47.6 MCV 84.4 MCH 27.9 MCHC 33.0 RDW 14.7 Plt Count 314 MPV 8.3 Neutrophils % 73.5 Lymphocytes % 15.1 Monocytes % 10.0 Eosinophils % 0.6 Basophils % 0.8 PT with INR 11.50 INR 1.02 PTT (Actin FS) 32.7 Sodium Potassium Chloride Carbon Dioxide Anion Gap BUN Creatinine Creat Clearance w eGFR Random Glucose Lactic Acid 1.9 Calcium Total Bilirubin AST ALT Alkaline Phosphatase Creatine Kinase Troponin I Total Protein Albumin Urine Color Urine Appearance Urine pH Ur Specific Sum[place] Urine Protein Urine Glucose (UA) Urine Ketones Urine Blood Urine Nitrite Urine Bilirubin Urine Urobilinogen Ur Leukocyte Esterase Urine WBC (Auto) Urine RBC (Auto) Urine Mucus Salicylates Opiates Screen Methadone Screen Acetaminophen Barbiturate Screen Phencyclidine Screen Ur Amphetamines Screen MDMA (Ecstasy) Screen Benzodiazepines Screen Cocaine Screen U Marijuana (THC) Screen 07/10/17 07/10/17 07/10/17 10:15 11:00 14:50 WBC RBC Hgb Hct MCV MCH MCHC RDW Plt Count MPV Neutrophils % Lymphocytes % Monocytes % Eosinophils % Basophils % PT with INR INR PTT (Actin FS) Sodium 142 Potassium 3.7 Chloride 105 Carbon Dioxide 27 Anion Gap 10 BUN 21 H Creatinine 1.5 H Creat Clearance w eGFR 46.82 Random Glucose 126 H Lactic Acid Calcium 9.3 Total Bilirubin 0.9 AST 20 ALT 41 Alkaline Phosphatase 64 Creatine Kinase 72 Troponin I < 0.02 Total Protein 7.7 Albumin 3.7 Urine Color Yellow Urine Appearance Slcloudy Urine pH 5.0 Ur Specific [place] 1.026 Urine Protein 1+ H Urine Glucose (UA) Negative Urine Ketones 1+ H Urine Blood Negative Urine Nitrite Negative Urine Bilirubin Negative Urine Urobilinogen Negative Ur Leukocyte Esterase Negative Urine WBC (Auto) < 1 Urine RBC (Auto) 1 Urine Mucus Few Salicylates < 4.0 Opiates Screen Methadone Screen Acetaminophen < 10 L Barbiturate Screen Phencyclidine Screen Ur Amphetamines Screen MDMA (Ecstasy) Screen Benzodiazepines Screen Cocaine Screen U Marijuana (THC) Screen 07/10/17 14:50 WBC RBC Hgb Hct MCV MCH MCHC RDW Plt Count MPV Neutrophils % Lymphocytes % Monocytes % Eosinophils % Basophils % PT with INR INR PTT (Actin FS) Sodium Potassium Chloride Carbon Dioxide Anion Gap BUN Creatinine Creat Clearance w eGFR Random Glucose Lactic Acid Calcium Total Bilirubin AST ALT Alkaline Phosphatase Creatine Kinase Troponin I Total Protein Albumin Urine Color Urine Appearance Urine pH Ur Specific [place] Urine Protein Urine Glucose (UA) Urine Ketones Urine Blood Urine Nitrite Urine Bilirubin Urine Urobilinogen Ur Leukocyte Esterase Urine WBC (Auto) Urine RBC (Auto) Urine Mucus Salicylates Opiates Screen Negative Methadone Screen Negative Acetaminophen Barbiturate Screen Negative Phencyclidine Screen Negative Ur Amphetamines Screen Negative MDMA (Ecstasy) Screen Negative Benzodiazepines Screen Negative Cocaine Screen Negative U Marijuana (THC) Screen Negative Active Medications Generic Name Dose Route Start Last Admin Trade Name Freq PRN Reason Stop Dose Admin Brimonidine Tartrate 1 drop 07/11/17 10:00 Alphagan P 0.1% - OU DAILY NATHAN Dorzolamide HCl 1 drop 07/10/17 22:00 07/11/17 00:21 Trusopt 2% OU Not Given BID NATHAN Dextrose/Sodium Chloride 1,000 mls @ 100 mls/hr 07/10/17 21:15 07/10/17 21:54 D5-Ns - IV 100 mls/hr ASDIR NATHAN Administration Famotidine/Sodium Chloride 20 mg in 50 mls @ 100 mls/hr 07/10/17 21:15 22:00 Pepcid 20 Mg Premixed Ivpb - IVPB Not Given BID NATHAN Levetiracetam 500 mg 07/10/17 12:00 07/10/17 21:54 Keppra Injection - IVPB 500 mg BID NATHAN Administration Lorazepam 1 mg 07/10/17 23:47 07/11/17 00:01 Ativan Injection - IVPUSH 1 mg Q6H PRN Administration ANXIETY Metoprolol Tartrate 5 mg 07/11/17 02:00 07/11/17 02:07 Lopressor Injection - IVPUSH 5 mg Q4H PRN Administration SBP > 180 Triamcinolone Acetonide 1 applic 07/11/17 10:00 Aristocort 0.1% Ointment - TP DAILY NATHAN ASSESSMENT/PLAN:
[2017-07-11 09:39] LABS: MCH 27.8 pg (25.7-33.7); MCHC 32.7 g/dl (32.0-35.9); MEAN CELL VOLUME 85.1 fl (80-96); MEAN PLT VOLUME 8.7 fl (7.5-11.1); PLATELET COUNT 318 K/MM3 (134-434); RDW 14.5 % (11.9-15.9); WHITE BLOOD COUNT 13.5 K/mm3 (4.0-10.0)
--- NOTE | 2017-07-11 09:47 | PN ---
Progress Note (short form) - Note Progress Note: Neurology History of Present Illness The patient is a 67 year old male with a significant PMH of HTN, GERD, right eye glaucoma (s/p surgery), arthritis, psoriasis, and Lyme disease who presents with fiance and son to the emergency department with worsening dizziness and confusion beginning several months ago. The patients son reports that the patient has been intermittently fatigued and dizzy since the patients glaucoma surgery a few months ago. He noted that his dizziness has become significantly worse over the past 3 days with associated vomiting, dry mouth, and reduced appetite. T The patient was initially seen by me in the ER and head and CT head complete and showed left frontal 6.5 x 3.5 x 3.7 cm growth along with acute hemorrhagic component that is 1.1 cm in size. There was cerebral edema along with sulcal effacement. There was 11mm left to right shift. 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 IV steroids were given for reduction of edema as well as Keppra for seizure prevention. This growth does explain the patient's confusion and mental status changes. A contrast enhanced MRI of the brain was recommended but the patient was not even tolerating CT head due to movement. Also concern regarding kidney function and awaiting AM labs to consider contrast CT. The patient remains restless and moving around in bed. Was able to tell me he's at [facility]. Son is at bedside and we had a discussion regarding diagnosis and potential treatment options including surgical intervention. IV steroids recommended for reduction of edema, Er spoke to eye doctor who said in this case would be okay to have patient on steroids despite glaucoma due to concern regarding cerebral edema, spoke to son about this and was also in agreement. Spoke to Hollis gardner about this as well. Having imaging would be needed in this case. Active Medications Brimonidine Tartrate (Alphagan P 0.1% -) 1 drop OU DAILY NATHAN Dorzolamide HCl (Trusopt 2%) 1 drop OU BID NATHAN Last Admin: 07/11/17 00:21 Dose: Not Given Dextrose/Sodium Chloride (D5-Ns -) 1,000 mls @ 100 mls/hr IV ASDIR NATHAN Last Admin: 07/11/17 09:28 Dose: 100 mls/hr Famotidine/Sodium Chloride (Pepcid 20 Mg Premixed Ivpb -) 20 mg in 50 mls @ 100 mls/hr IVPB BID [facility] Last Admin: 07/11/17 09:27 Dose: 100 mls/hr Levetiracetam (Keppra Injection -) 500 mg IVPB BID [facility] Last Admin: 07/11/17 09:27 Dose: 500 mg Lorazepam (Ativan Injection -) 1 mg IVPUSH Q6H PRN PRN Reason: ANXIETY Last Admin: 07/11/17 00:01 Dose: 1 mg Metoprolol Tartrate (Lopressor Injection -) 5 mg IVPUSH Q4H PRN PRN Reason: SBP > 180 Last Admin: 07/11/17 02:07 Dose: 5 mg Triamcinolone Acetonide (Aristocort 0.1% Ointment -) 1 applic TP DAILY [facility] *Physical Exam Vital Signs Period Temp Pulse Resp BP Sys/Banegas Pulse Ox Last 24 Hr 98.1 F-99.8 F 87-899 16-26 101-206/76-108 95-100 GENERAL: Awake, alert, and fully oriented, in no acute distress, irritable but cooperative HEAD: (+) 1x2cm. small abrasion to upper forehead. (+) 2x2cm. small abrasion to bridge of nose. EYES: PERRLA, EOMI, sclera anicteric, conjunctiva clear ENT: (+) Dry blood in right nares. (+) Dry mucosa. No septal hematoma. Auricles normal inspection, hearing grossly normal, nares patent, oropharynx clear without exudates. NECK: Normal ROM, supple, no lymphadenopathy, JVD, or masses LUNGS: Breath sounds equal, clear to auscultation bilaterally. No wheezes, and no crackles HEART: Regular rate and rhythm, normal S1 and S2, no murmurs, rubs or gallops ABDOMEN: Soft, nontender, normoactive bowel sounds. No guarding, no rebound. No masses EXTREMITIES: Normal range of motion, no edema. No clubbing or cyanosis. No cords, erythema, or tenderness. NEUROLOGICAL: Cranial nerves II through XII intact. 5/5 strength upper and lower extremities. Sensation intact throughout. No pronator drift. Finger to nose normal. Normal speech. SKIN: Warm, Dry, normal turgor, no rashes or lesions noted. CBCD WBC 12.0 K/mm3 (4.0-10.0) H 07/10/17 10:15 RBC 5.64 M/mm3 (4.00-5.60) H 07/10/17 10:15 Hgb 15.7 GM/dL (11.7-16.9) 07/10/17 10:15 Hct 47.6 % (35.4-49) 07/10/17 10:15 MCV 84.4 fl (80-96) 07/10/17 10:15 MCHC 33.0 g/dl (32.0-35.9) 07/10/17 10:15 RDW 14.7 % (11.9-15.9) 07/10/17 10:15 Plt Count 314 K/MM3 (134-434) 07/10/17 10:15 MPV 8.3 fl (7.5-11.1) 07/10/17 10:15 CMP Sodium 141 mmol/L (136-145) 07/11/17 07:40 Potassium 5.0 mmol/L (3.5-5.1) D 07/11/17 07:40 Chloride 107 mmol/L (98-107) 07/11/17 07:40 Carbon Dioxide 27 mmol/L (21-32) 07/11/17 07:40 Anion Gap 7 (8-16) L 07/11/17 07:40 BUN 18 mg/dL (7-18) 07/11/17 07:40 Creatinine 1.3 mg/dL (0.7-1.3) 07/11/17 07:40 Creat Clearance w eGFR 46.82 (>60) 07/10/17 10:15 Calcium 9.2 mg/dL (8.5-10.1) 07/11/17 07:40 Total Bilirubin 0.9 mg/dL (0.2-1.0) 07/10/17 10:15 AST 20 U/L (15-37) 07/10/17 10:15 ALT 41 U/L (12-78) 07/10/17 10:15 Alkaline Phosphatase 64 U/L (45-117) 07/10/17 10:15 Total Protein 7.7 g/dl (6.4-8.2) 07/10/17 10:15 Albumin 3.7 g/dl (3.4-5.0) 07/10/17 10:15 CT head reviewed as above Medical Decision Making 67 year old male with a significant PMH of HTN, GERD, right eye glaucoma (s/p surgery), arthritis, psoriasis, and Lyme disease who presents with fiance and son to the emergency department with worsening dizziness and confusion beginning several months ago. The patients son reports that the patient has been intermittently fatigued and dizzy since the patients glaucoma surgery a few months ago. He notes that his dizziness has become significantly worse over the past 3 days with associated vomiting, dry mouth, and reduced appetite. The patients son reports an episode yesterday in which the patient was feeding his cat and lost control of his body, falling face first and sustaining several abrasions to the face. The patient also reports double vision since his eye surgery which is aggravated by turning his head and bending down. The patients fiance reports that the patient has been generally not himself for the past 3 weeks and has become increasingly confused (80% present, 20% confused). The patient also reports significant psoriasis to the abdomen and lower extremities , which remain unchanged from normal. Left frontal 6.5 x 3.5 x 3.7 cm growth along with acute hemorrhagic component that is 1.1 cm in size. Cerebral edema along with sulcal effacement. 11mm left to right shift. Possibly SOX ANALYST neoplasm. IV steroids recommended for reduction of edema, Er spoke to eye doctor who said in this case would be okay to have patient on steroids despite glaucoma due to concern regarding cerebral edema, spoke to son about this and was also in agreement Will start Decadron 6mg Q 6hrs, discussed with Dr. hollis gardner as well Keppra 500mg twice daily for seizure prevention. Contrast enhanced MRI of the brain would be recommended NSGY note reviewed BP control for acute hemoraghic component, recommend maintaining close to or below 140/90 ICU monitoring ongoing Hold ASA/antiplatelet medication for now Awaiting CT head with contrast, pending renal function Critical care time 80mins
[2017-07-11] MEDS ORDERED: TRIAMCINOLONE ACET 0.1% OINT 15 GM TUBE TP SCH (10:00)
[2017-07-11] MEDS: DEXAMETHASONE SOD PHOSPHATE 10 MG/1 ML VIAL IVPUSH SCH ×3 (10:33→20:59)
--- NOTE | 2017-07-11 10:43 | PN ---
Progress Note, Physician Chief Complaint: could not get MRI brain done as he was uncooperative lethargic Family at bedside pt not following commands - Current Medication List Current Medications: Active Medications Brimonidine Tartrate (Alphagan P 0.1% -) 1 drop OU DAILY [facility] Dexamethasone Sodium Phosphate (Decadron Injection -) 6 mg IVPUSH Q6H-IV NATHAN Last Admin: 07/11/17 10:33 Dose: 6 mg Dorzolamide HCl (Trusopt 2%) 1 drop OU BID NATHAN Last Admin: 07/11/17 00:21 Dose: Not Given Dextrose/Sodium Chloride (D5-Ns -) 1,000 mls @ 100 mls/hr IV ASDIR NATHAN Last Admin: 07/11/17 09:28 Dose: 100 mls/hr Famotidine/Sodium Chloride (Pepcid 20 Mg Premixed Ivpb -) 20 mg in 50 mls @ 100 mls/hr IVPB BID NATHAN Last Admin: 07/11/17 09:27 Dose: 100 mls/hr Levetiracetam (Keppra Injection -) 500 mg IVPB BID [facility] Last Admin: 07/11/17 09:27 Dose: 500 mg Lorazepam (Ativan Injection -) 1 mg IVPUSH Q6H PRN PRN Reason: ANXIETY Last Admin: 07/11/17 00:01 Dose: 1 mg Metoprolol Tartrate (Lopressor Injection -) 5 mg IVPUSH Q4H PRN PRN Reason: SBP > 180 Last Admin: 07/11/17 10:34 Dose: 5 mg Triamcinolone Acetonide (Aristocort 0.1% Ointment -) 1 applic TP DAILY [facility] - Objective Vital Signs: Vital Signs Temperature 98.5 F 07/11/17 10:00 Pulse Rate 94 H 07/11/17 10:34 Respiratory Rate 18 07/11/17 10:00 Blood Pressure 182/83 07/11/17 10:34 O2 Sat by Pulse Oximetry (%) 95 07/11/17 08:00 Constitutional: Yes: No Distress Cardiovascular: Yes: Regular Rate and Rhythm Respiratory: Yes: CTA Bilaterally Gastrointestinal: Yes: Normal Bowel Sounds, Soft. No: Tenderness Edema: No Labs: CBC, BMP 07/11/17 07:40 07/11/17 07:40 INR, PTT INR 1.02 (0.82-1.09) 07/10/17 10:15 Problem List - Problems (1) Brain mass Code(s): G93.9 - DISORDER OF BRAIN, UNSPECIFIED (2) Hypertension Code(s): I10 - ESSENTIAL (PRIMARY) HYPERTENSION (3) Psoriasis Code(s): L40.9 - PSORIASIS, UNSPECIFIED (4) Renal failure Code(s): N19 - UNSPECIFIED KIDNEY FAILURE Assessment/Plan PLAN Neurosurgeon and Neurology follow up noted Renal function normal after iv fluids Pt not intubated able to maintain airway keep NPO iv fluids on IV Keppra for seizure prophylaxis For CT brain with iv contrast DVT prophylaxis-- SCD
[2017-07-11] MEDS: BRIMONIDINE TARTRATE 0.1% OPHTHALMIC 5 ML BOTTLE OU SCH (10:45)
--- NOTE | 2017-07-11 12:58 | PN ---
Teaching Attending Note Name of Resident: Minh Lee ATTENDING PHYSICIAN STATEMENT I saw and evaluated the patient. I reviewed the resident's note and discussed the case with the resident. I agree with the resident's findings and plan as documented. SUBJECTIVE: Pt seen and examined in the ICU. Remains altered with waxing/waning mental status. Family requesting transfer to tertiary care center. OBJECTIVE: Last Vital Signs Temp Pulse Resp BP Pulse Ox 98.5 F 92 H 21 159/84 96 07/11/17 10:00 07/11/17 12:00 07/11/17 12:00 07/11/17 12:00 07/11/17 09:00 Intake & Output 07/08/17 07/09/17 07/10/17 07/11/17 23:59 23:59 23:59 23:59 Weight 205 lb Gen: confused, altered Heart: RRR Lung: decreased breath sounds at the bases Abd: soft, nontender Ext: no edema CBC, BMP 07/11/17 07:40 07/11/17 07:40 Active Medications Brimonidine Tartrate (Alphagan P 0.1% -) 1 drop OU DAILY NATHAN Last Admin: 07/11/17 10:45 Dose: 1 drop Dexamethasone Sodium Phosphate (Decadron Injection -) 6 mg IVPUSH Q6H-IV NATHAN Last Admin: 07/11/17 10:33 Dose: 6 mg Dorzolamide HCl (Trusopt 2%) 1 drop OU BID NATHAN Last Admin: 07/11/17 10:45 Dose: 1 drop Dextrose/Sodium Chloride (D5-Ns -) 1,000 mls @ 100 mls/hr IV ASDIR NATHAN Last Admin: 07/11/17 09:28 Dose: 100 mls/hr Famotidine/Sodium Chloride (Pepcid 20 Mg Premixed Ivpb -) 20 mg in 50 mls @ 100 mls/hr IVPB BID NATHAN Last Admin: 07/11/17 09:27 Dose: 100 mls/hr Levetiracetam (Keppra Injection -) 500 mg IVPB BID NATHAN Last Admin: 07/11/17 09:27 Dose: 500 mg Lorazepam (Ativan Injection -) 1 mg IVPUSH Q6H PRN PRN Reason: ANXIETY Last Admin: 07/11/17 00:01 Dose: 1 mg Metoprolol Tartrate (Lopressor Injection -) 5 mg IVPUSH Q4H PRN PRN Reason: SBP > 180 Last Admin: 07/11/17 10:34 Dose: 5 mg Triamcinolone Acetonide (Aristocort 0.1% Ointment -) 1 applic TP DAILY COUNT INCLUDES THE [facility] ASSESSMENT AND PLAN: s/p Fall Altered Mental Status Brain Mass with intracranial hemorrhage and mass effect Psoriasis Acute Kidney Injury Glaucoma - continue empiric antiepileptics - decadron - IVF - monitor urine output, creatinine - neurosurgery following - unable to obtain MRI at this time due to agitation - will initiate transfer to [facility]
--- NOTE | 2017-07-11 13:49 | DS ---
Physical Exam: SUBJECTIVE: Patient seen and examined at bedside. Pt uncooperative with exam. Somewhat confused. OBJECTIVE: Vital Signs Period Temp Pulse Resp BP Sys/Banegas Pulse Ox Last 24 Hr 98.5 F-99.8 F 89-899 16-26 101-206/76-108 95-100 PHYSICAL EXAM GENERAL: The patient is awake, alert, and fully oriented, in no acute distress. HEAD: Normal with no signs of trauma. EYES: PERRL, extraocular movements intact, sclera anicteric, conjunctiva clear. No ptosis. ENT: Ears normal, nares patent, oropharynx clear without exudates, moist mucous membranes. NECK: Trachea midline, full range of motion, supple. LUNGS: Breath sounds equal, clear to auscultation bilaterally, no wheezes, no crackles, no accessory muscle use. HEART: Regular rate and rhythm, S1, S2 without murmur, rub or gallop. ABDOMEN: Soft, nontender, nondistended, normoactive bowel sounds, no guarding, no rebound, no hepatosplenomegaly, no masses. EXTREMITIES: 2+ pulses, warm, well-perfused, no edema. NEUROLOGICAL: Pt uncooperative with exam. Moves all 4 limbs spontaneously. Pt is able to speak (pt enunciated a question clearly), but mostly mumbles. No obvious facial droop. No obvious hemiparesis or spastic movements. PSYCH: Confused. Poorly responsive. Pt mumbles and repeats answers unintelligibly SKIN: Warm, dry, normal turgor, diffuse extensive erythematous scaly rash likely psoriatic LABS Laboratory Results - last 24 hr 07/10/17 07/10/17 07/11/17 14:50 14:50 07:40 WBC 13.5 H RBC 5.88 H Hgb 16.4 Hct 50.1 H MCV 85.1 MCH 27.8 MCHC 32.7 RDW 14.5 Plt Count 318 MPV 8.7 Sodium Potassium Chloride Carbon Dioxide Anion Gap BUN Creatinine Random Glucose Calcium Phosphorus Magnesium Urine Color Yellow Urine Appearance Slcloudy Urine pH 5.0 Ur Specific [place] 1.026 Urine Protein 1+ H Urine Glucose (UA) Negative Urine Ketones 1+ H Urine Blood Negative Urine Nitrite Negative Urine Bilirubin Negative Urine Urobilinogen Negative Ur Leukocyte Esterase Negative Urine WBC (Auto) < 1 Urine RBC (Auto) 1 Urine Mucus Few Opiates Screen Negative Methadone Screen Negative Barbiturate Screen Negative Phencyclidine Screen Negative Ur Amphetamines Screen Negative MDMA (Ecstasy) Screen Negative Benzodiazepines Screen Negative Cocaine Screen Negative U Marijuana (THC) Screen Negative 07/11/17 07:40 WBC RBC Hgb Hct MCV MCH MCHC RDW Plt Count MPV Sodium 141 Potassium 5.0 D Chloride 107 Carbon Dioxide 27 Anion Gap 7 L BUN 18 Creatinine 1.3 Random Glucose 120 H Calcium 9.2 Phosphorus 3.1 Magnesium 2.4 Urine Color Urine Appearance Urine pH Ur Specific [place] Urine Protein Urine Glucose (UA) Urine Ketones Urine Blood Urine Nitrite Urine Bilirubin Urine Urobilinogen Ur Leukocyte Esterase Urine WBC (Auto) Urine RBC (Auto) Urine Mucus Opiates Screen Methadone Screen Barbiturate Screen Phencyclidine Screen Ur Amphetamines Screen MDMA (Ecstasy) Screen Benzodiazepines Screen Cocaine Screen U Marijuana (THC) Screen HOSPITAL COURSE: Date of Admission:07/10/17 Date of Discharge: 07/11/17 Pt is a 67 year old male with PMH HTN, GERD, right eye glaucoma (s/p surgery ), arthritis, psoriasis, and Lyme disease who presented with fiance and son to the emergency department with worsening dizziness and confusion beginning several months ago and worsening over the last 3 days. The patient had a fall with abrasions to the face. He was brought into the ED. Head CT was done, which revealed a left frontal lobe mass (Per neurology note: "left frontal 6.5 x 3.5 x 3.7 cm growth along with acute hemorrhagic component that is 1.1 cm in size. There was cerebral edema along with sulcal effacement. There was 11mm left to right shift. The presumptive diagnosis is a [employer]BER neoplasm."). Per patient's chart, in the ED the patient had a mental status change prompting intubation and transfer to ICU. However, he reverted to his baseline prior to being intubated, and so he was transferred to ICU without intubation. Several attempts were made to obtain more accurate imaging of the patient's brain lesion by MRI, but the patient was uncooperative and would not lay still despite several doses of ativan. The plan today was to get a head CT with contrast and for neurosurgery to possibly perform a biopsy or resection as they saw fit. However, the family of the patient requested transfer to [facility]. Transfer was initiated around 12pm. Will send requested information to [facility] with pt. Accepting physician: Dr. Aleksander Llamas Transfer Center Number: [phone] Minutes to complete discharge: 35 Discharge Summary Reason For Visit: BRAIN OF MASS Current Active Problems Brain mass (Acute) Glaucoma (Acute) Hypertension (Acute) Psoriasis (Acute) Renal failure (Acute) Condition: Guarded - Instructions Referrals: Kevin Davis MD [Primary Care Provider] - Disposition: TRANSFER ACUTE CARE/OTHER HOSP - Home Medications Comprehensive Discharge Medication List: Ambulatory Orders Aspirin [ASA -] 81 mg PO DAILY 07/10/17 Calcipotriene 0.005% Top Crm [Dovonex 0.005% Cream -] 60 gm TP ASDIR 07/10/17 Metoprolol Succinate [Toprol Xl] 50 mg PO BID 07/10/17 Naproxen [Naprosyn -] 500 mg PO BID 07/10/17 This patient is new to me today: Yes Date on this admission: 07/13/17 Emergency Visit: No Critical Care patient: No - Discharge Referral Referred to [facility] Med P.C.: No
[2017-07-12] MEDS: DEXAMETHASONE SOD PHOSPHATE 10 MG/1 ML VIAL IVPUSH SCH ×3 (03:34→15:03)
[2017-07-12] MEDS: LORazepam 2 MG/ML SDV VIAL IVPUSH PRN (03:34)
[2017-07-12] MEDS: METOPROLOL TARTRATE 5 MG/5 ML VIAL IVPUSH PRN (03:46)
[2017-07-12 06:21] LABS: BASOPHIL 0.2 % (0-2.0); MCHC 33.1 g/dl (32.0-35.9); MEAN CELL VOLUME 84.8 fl (80-96); MEAN PLT VOLUME 8.7 fl (7.5-11.1); NEUTROPHILS 86.5 % (42.8-82.8); PLATELET COUNT 343 K/MM3 (134-434); WHITE BLOOD COUNT 13.2 K/mm3 (4.0-10.0)
[2017-07-12 06:59] LABS: ALBUMIN 3.6 g/dl (3.4-5.0); ALK PHOS 58 U/L (45-117); ANION GAP 11 (8-16); BILIRUBIN,TOTAL 0.7 mg/dL (0.2-1.0); CALCIUM 8.9 mg/dL (8.5-10.1); CO2 24 mmol/L (21-32); CREATININE 1.2 mg/dL (0.7-1.3); GLUCOSE,RANDOM 131 mg/dL (74-106); MAGNESIUM 2.4 mg/dL (1.8-2.4); PHOSPHOROUS 2.7 mg/dL (2.5-4.9); SGOT/AST 19 U/L (15-37); SGPT/ALT 35 U/L (12-78); TOT PROT 7.6 g/dl (6.4-8.2)
[2017-07-12] MEDS: DEXTROSE 5%-NORMAL SALINE 1,000 ML IV SCH ×2 (07:45→17:01)
[2017-07-12] MEDS ORDERED: PT OWN MED DRAWER 7, Y5N ONE (09:44)
--- NOTE | 2017-07-12 09:54 | PN ---
Progress Note (short form) - Note Progress Note: Neurology History of Present Illness The patient is a 67 year old male with a significant PMH of HTN, GERD, right eye glaucoma (s/p surgery), arthritis, psoriasis, and Lyme disease who presents with fiance and son to the emergency department with worsening dizziness and confusion beginning several months ago. The patients son reports that the patient has been intermittently fatigued and dizzy since the patients glaucoma surgery a few months ago. He noted that his dizziness has become significantly worse over the past 3 days with associated vomiting, dry mouth, and reduced appetite. T The patient was initially seen by me in the ER and head and CT head complete and showed left frontal 6.5 x 3.5 x 3.7 cm growth along with acute hemorrhagic component that is 1.1 cm in size. There was cerebral edema along with sulcal effacement. There was 11mm left to right shift. The presumptive diagnosis is a [employer] neoplasm. IV steroids were given for reduction of edema as well as Keppra for seizure prevention. This growth does explain the patient's confusion and mental status changes. A contrast enhanced MRI of the brain was recommended but the patient was not even tolerating CT head due to movement. The patient has been restless and moving around in bed. Son is at bedside and continued discussion regarding diagnosis and potential treatment options including surgical intervention. Family had requested transfer yesterday and spoke to resident. Awaiting bed at [facility], there is an accepting physician. IV steroids recommended for reduction of edema, had spoken to family and to have patient on steroids despite glaucoma due to concern regarding cerebral edema, will continue steroids today and family in agreement. No signficant improvements thus far and remains under close care in ICU. Active Medications Brimonidine Tartrate (Alphagan P 0.1% -) 1 drop OU DAILY NATHAN Last Admin: 07/11/17 10:45 Dose: 1 drop Dexamethasone Sodium Phosphate (Decadron Injection -) 6 mg IVPUSH Q6H-IV NATHAN Last Admin: 07/12/17 03:34 Dose: 6 mg Dorzolamide HCl (Trusopt 2%) 1 drop OU BID NATHAN Last Admin: 07/11/17 21:00 Dose: 1 drop Dextrose/Sodium Chloride (D5-Ns -) 1,000 mls @ 100 mls/hr IV ASDIR NATHAN Last Admin: 07/12/17 07:45 Dose: 100 mls/hr Famotidine/Sodium Chloride (Pepcid 20 Mg Premixed Ivpb -) 20 mg in 50 mls @ 100 mls/hr IVPB BID [facility] Last Admin: 07/11/17 21:00 Dose: 100 mls/hr Levetiracetam (Keppra Injection -) 500 mg IVPB BID [facility] Last Admin: 07/11/17 21:00 Dose: 500 mg Lorazepam (Ativan Injection -) 1 mg IVPUSH Q6H PRN PRN Reason: ANXIETY Last Admin: 07/12/17 03:34 Dose: 1 mg Metoprolol Tartrate (Lopressor Injection -) 5 mg IVPUSH Q4H PRN PRN Reason: SBP > 180 Last Admin: 07/12/17 03:46 Dose: 5 mg Triamcinolone Acetonide (Aristocort 0.1% Ointment -) 1 applic TP DAILY [facility] Last Admin: 07/11/17 15:45 Dose: 1 applic *Physical Exam Vital Signs Temperature 98.4 F 07/12/17 06:00 Pulse Rate 82 07/12/17 08:00 Respiratory Rate 16 07/12/17 08:00 Blood Pressure 174/77 07/12/17 08:00 O2 Sat by Pulse Oximetry (%) 94 L 07/12/17 07:56 GENERAL: Awake, alert, and fully oriented, in no acute distress, irritable but cooperative HEAD: (+) 1x2cm. small abrasion to upper forehead. (+) 2x2cm. small abrasion to bridge of nose. EYES: PERRLA, EOMI, sclera anicteric, conjunctiva clear ENT: (+) Dry blood in right nares. (+) Dry mucosa. No septal hematoma. Auricles normal inspection, hearing grossly normal, nares patent, oropharynx clear without exudates. NECK: Normal ROM, supple, no lymphadenopathy, JVD, or masses LUNGS: Breath sounds equal, clear to auscultation bilaterally. No wheezes, and no crackles HEART: Regular rate and rhythm, normal S1 and S2, no murmurs, rubs or gallops ABDOMEN: Soft, nontender, normoactive bowel sounds. No guarding, no rebound. No masses EXTREMITIES: Normal range of motion, no edema. No clubbing or cyanosis. No cords, erythema, or tenderness. NEUROLOGICAL: Cranial nerves II through XII intact. 5/5 strength upper and lower extremities. Sensation intact throughout. No pronator drift. Finger to nose normal. Normal speech. SKIN: Warm, Dry, normal turgor, no rashes or lesions noted. CBCD WBC 13.2 K/mm3 (4.0-10.0) H 07/12/17 06:00 RBC 5.55 M/mm3 (4.00-5.60) 07/12/17 06:00 Hgb 15.6 GM/dL (11.7-16.9) 07/12/17 06:00 Hct 47.1 % (35.4-49) 07/12/17 06:00 MCV 84.8 fl (80-96) 07/12/17 06:00 MCHC 33.1 g/dl (32.0-35.9) 07/12/17 06:00 RDW 15.0 % (11.9-15.9) 07/12/17 06:00 Plt Count 343 K/MM3 (134-434) 07/12/17 06:00 MPV 8.7 fl (7.5-11.1) 07/12/17 06:00 CMP Sodium 144 mmol/L (136-145) 07/12/17 06:00 Potassium 4.2 mmol/L (3.5-5.1) 07/12/17 06:00 Chloride 109 mmol/L (98-107) H 07/12/17 06:00 Carbon Dioxide 24 mmol/L (21-32) 07/12/17 06:00 Anion Gap 11 (8-16) 07/12/17 06:00 BUN 16 mg/dL (7-18) 07/12/17 06:00 Creatinine 1.2 mg/dL (0.7-1.3) 07/12/17 06:00 Creat Clearance w eGFR > 60 (>60) 07/12/17 06:00 Calcium 8.9 mg/dL (8.5-10.1) 07/12/17 06:00 Total Bilirubin 0.7 mg/dL (0.2-1.0) D 07/12/17 06:00 AST 19 U/L (15-37) 07/12/17 06:00 ALT 35 U/L (12-78) 07/12/17 06:00 Alkaline Phosphatase 58 U/L (45-117) 07/12/17 06:00 Total Protein 7.6 g/dl (6.4-8.2) 07/12/17 06:00 Albumin 3.6 g/dl (3.4-5.0) 07/12/17 06:00 CT head reviewed as above Medical Decision Making 67 year old male with a significant PMH of HTN, GERD, right eye glaucoma (s/p surgery), arthritis, psoriasis, and Lyme disease who presents with fiance and son to the emergency department with worsening dizziness and confusion beginning several months ago. The patients son reports that the patient has been intermittently fatigued and dizzy since the patients glaucoma surgery a few months ago. He notes that his dizziness has become significantly worse over the past 3 days with associated vomiting, dry mouth, and reduced appetite. The patients son reports an episode yesterday in which the patient was feeding his cat and lost control of his body, falling face first and sustaining several abrasions to the face. The patient also reports double vision since his eye surgery which is aggravated by turning his head and bending down. The patients fiance reports that the patient has been generally not himself for the past 3 weeks and has become increasingly confused (80% present, 20% confused). The patient also reports significant psoriasis to the abdomen and lower extremities , which remain unchanged from normal. Left frontal 6.5 x 3.5 x 3.7 cm growth along with acute hemorrhagic component that is 1.1 cm in size. Cerebral edema along with sulcal effacement. 11mm left to right shift. Possibly [employer] neoplasm. IV steroids recommended for reduction of edema, day 2, will continue, family agreed Decadron 6mg Q 6hrs Keppra 500mg twice daily for seizure prevention. Contrast enhanced MRI of the brain would be recommended but not tolerating imaging BP control for acute hemoraghic component, recommend maintaining close to or below 140/90 ICU monitoring ongoing Hold ASA/antiplatelet medication for now Awaiting CT head with contrast, if able to tolerate would recommend completing Awaiting transfer to tertiary care center, reportedly awaiting bed Critical care time 45mins
[2017-07-12] MEDS: levETIRAcetam 500 MG/5 ML INJECTION VIAL IVPB SCH (10:04)
[2017-07-12] MEDS: FAMOTIDINE 20 MG/50 ML IVPB 20 MG/50 ML MG IVPB SCH (10:08)
[2017-07-12] MEDS: BRIMONIDINE TARTRATE 0.1% OPHTHALMIC 5 ML BOTTLE OU SCH (10:25)
--- NOTE | 2017-07-12 10:33 | PN ---
Progress Note, Physician Chief Complaint: lethargic Family at bedside pt not following commands awaiting transfer to [facility] - Current Medication List Current Medications: Active Medications Brimonidine Tartrate (Alphagan P 0.1% -) 1 drop OU DAILY [facility] Last Admin: 07/12/17 10:25 Dose: 1 drop Dexamethasone Sodium Phosphate (Decadron Injection -) 6 mg IVPUSH Q6H-IV NATHAN Last Admin: 07/12/17 09:55 Dose: 6 mg Dorzolamide HCl (Trusopt 2%) 1 drop OU BID NATHAN Last Admin: 07/11/17 21:00 Dose: 1 drop Dextrose/Sodium Chloride (D5-Ns -) 1,000 mls @ 100 mls/hr IV ASDIR NATHAN Last Admin: 07/12/17 07:45 Dose: 100 mls/hr Famotidine/Sodium Chloride (Pepcid 20 Mg Premixed Ivpb -) 20 mg in 50 mls @ 100 mls/hr IVPB BID NATHAN Last Admin: 07/12/17 10:08 Dose: 100 mls/hr Levetiracetam (Keppra Injection -) 500 mg IVPB BID [facility] Last Admin: 07/12/17 10:04 Dose: 500 mg Lorazepam (Ativan Injection -) 1 mg IVPUSH Q6H PRN PRN Reason: ANXIETY Last Admin: 07/12/17 03:34 Dose: 1 mg Metoprolol Tartrate (Lopressor Injection -) 5 mg IVPUSH Q4H PRN PRN Reason: SBP > 180 Last Admin: 07/12/17 03:46 Dose: 5 mg Triamcinolone Acetonide (Aristocort 0.1% Ointment -) 1 applic TP DAILY [facility] Last Admin: 07/11/17 15:45 Dose: 1 applic - Objective Vital Signs: Vital Signs Temperature 98.4 F 07/12/17 06:00 Pulse Rate 82 07/12/17 08:00 Respiratory Rate 16 07/12/17 08:00 Blood Pressure 174/77 07/12/17 08:00 O2 Sat by Pulse Oximetry (%) 94 L 07/12/17 07:56 Constitutional: Yes: No Distress, Other (lethargic) Cardiovascular: Yes: Regular Rate and Rhythm Respiratory: Yes: Diminished Gastrointestinal: Yes: Normal Bowel Sounds, Soft. No: Tenderness Edema: No Labs: CBC, BMP 07/12/17 06:00 07/12/17 06:00 INR, PTT INR 1.02 (0.82-1.09) 07/10/17 10:15 Problem List - Problems (1) Brain mass Code(s): G93.9 - DISORDER OF BRAIN, UNSPECIFIED (2) Hypertension Code(s): I10 - ESSENTIAL (PRIMARY) HYPERTENSION (3) Psoriasis Code(s): L40.9 - PSORIASIS, UNSPECIFIED (4) Renal failure Code(s): N19 - UNSPECIFIED KIDNEY FAILURE Assessment/Plan PLAN Neurosurgeon and Neurology follow up noted Renal function normal after iv fluids Pt not intubated able to maintain airway keep NPO iv fluids on IV Keppra for seizure prophylaxis IV Decadron awaiting transfer to [facility] prognosis guarded-- not following commands DVT prophylaxis-- SCD
--- NOTE | 2017-07-12 11:04 | PN ---
Teaching Attending Note Name of Resident: Minh Lee ATTENDING PHYSICIAN STATEMENT I saw and evaluated the patient. I reviewed the resident's note and discussed the case with the resident. I agree with the resident's findings and plan as documented. SUBJECTIVE: Pt seen and examined in the ICU. Remains confused, altered with waxing/waning mental status. Family at bedside. OBJECTIVE: Last Vital Signs Temp Pulse Resp BP Pulse Ox 98.4 F 82 16 174/77 94 L 07/12/17 06:00 07/12/17 08:00 07/12/17 08:00 07/12/17 08:00 07/12/17 07:56 Intake & Output 07/09/17 07/10/17 07/11/17 07/12/17 23:59 23:59 23:59 23:59 Intake Total 1400 1250 Output Total 300 Balance 1100 1250 Weight 205 lb 222 lb 6 oz Gen: confused Heart: RRR Lung: decreased breath sounds at the bases Abd: soft, nontender Ext: no edema CBC, BMP 07/12/17 06:00 07/12/17 06:00 Active Medications Brimonidine Tartrate (Alphagan P 0.1% -) 1 drop OU TID NATHAN Dexamethasone Sodium Phosphate (Decadron Injection -) 6 mg IVPUSH Q6H-IV [facility]ATHAN Last Admin: 07/12/17 09:55 Dose: 6 mg Dextrose/Sodium Chloride (D5-Ns -) 1,000 mls @ 100 mls/hr IV ASDIR NATHAN Last Admin: 07/12/17 07:45 Dose: 100 mls/hr Famotidine/Sodium Chloride (Pepcid 20 Mg Premixed Ivpb -) 20 mg in 50 mls @ 100 mls/hr IVPB BID [facility]ATHAN Last Admin: 07/12/17 10:08 Dose: 100 mls/hr Levetiracetam (Keppra Injection -) 500 mg IVPB BID NATHAN Last Admin: 07/12/17 10:04 Dose: 500 mg Lorazepam (Ativan Injection -) 1 mg IVPUSH Q6H PRN PRN Reason: ANXIETY Last Admin: 07/12/17 03:34 Dose: 1 mg Metoprolol Tartrate (Lopressor Injection -) 5 mg IVPUSH Q4H PRN PRN Reason: SBP > 180 Last Admin: 07/12/17 03:46 Dose: 5 mg Non-Formulary Medication (Dorzolamide Hcl/Timolol Maleat [Cosopt Eye Drops]) 1 drop OU BID NATHAN Non-Formulary Medication (Tafluprost/Pf [Zioptan 0.0015% Eye Drops]) 1 drop OU HS NATHAN Triamcinolone Acetonide (Aristocort 0.1% Ointment -) 1 applic TP DAILY [facility]ATHAN Last Admin: 07/11/17 15:45 Dose: 1 applic ASSESSMENT AND PLAN: s/p Fall Altered Mental Status Brain Mass with intracranial hemorrhage and mass effect Psoriasis Acute Kidney Injury improving Glaucoma - continue empiric antiepileptics - decadron - IVF - monitor urine output, creatinine - neurosurgery following - unable to obtain MRI at this time due to agitation - awaiting transfer to [facility]
--- NOTE | 2017-07-12 11:33 | PN ---
Physical Exam: SUBJECTIVE: Patient seen and examined at bedside. Pt uncooperative with exam. Somewhat confused. Pt does not respond to questions. OBJECTIVE: Vital Signs Period Temp Pulse Resp BP Sys/Banegas Pulse Ox Last 24 Hr 97.7 F-98.9 F 72-118 13-23 136-180/77-130 94-99 GENERAL: The patient is awake, alert, and fully oriented, in no acute distress. HEAD: Normal with no signs of trauma. EYES: PERRL, extraocular movements intact, sclera anicteric, conjunctiva clear. No ptosis. ENT: Ears normal, nares patent, oropharynx clear without exudates, moist mucous membranes. NECK: Trachea midline, full range of motion, supple. LUNGS: Breath sounds equal, clear to auscultation bilaterally, no wheezes, no crackles, no accessory muscle use. HEART: Regular rate and rhythm, S1, S2 without murmur, rub or gallop. ABDOMEN: Soft, nontender, nondistended, normoactive bowel sounds, no guarding, no rebound, no hepatosplenomegaly, no masses. EXTREMITIES: 2+ pulses, warm, well-perfused, no edema. NEUROLOGICAL: Pt uncooperative with exam. Moves all 4 limbs spontaneously. Pt is able to speak (pt enunciated a question clearly), but mostly mumbles. No obvious facial droop. No obvious hemiparesis or spastic movements. PSYCH: Confused. Poorly responsive. Pt mumbles and repeats answers unintelligibly SKIN: Warm, dry, normal turgor, diffuse extensive erythematous scaly rash likely psoriatic Laboratory Results - last 24 hr 07/12/17 07/12/17 06:00 06:00 WBC 13.2 H RBC 5.55 Hgb 15.6 Hct 47.1 MCV 84.8 MCH 28.0 MCHC 33.1 RDW 15.0 Plt Count 343 MPV 8.7 Neutrophils % 86.5 H Lymphocytes % 7.9 L D Monocytes % 5.4 Eosinophils % 0.0 D Basophils % 0.2 Sodium 144 Potassium 4.2 Chloride 109 H Carbon Dioxide 24 Anion Gap 11 BUN 16 Creatinine 1.2 Creat Clearance w eGFR > 60 Random Glucose 131 H Calcium 8.9 Phosphorus 2.7 Magnesium 2.4 Total Bilirubin 0.7 D AST 19 ALT 35 Alkaline Phosphatase 58 Total Protein 7.6 Albumin 3.6 Active Medications Generic Name Dose Route Start Last Admin Trade Name Freq PRN Reason Stop Dose Admin Brimonidine Tartrate 1 drop 07/12/17 14:00 Alphagan P 0.1% - OU TID NATHAN Dexamethasone Sodium Phosphate 6 mg 07/11/17 10:15 07/12/17 09:55 Decadron Injection - IVPUSH 6 mg Q6H-IV NATHAN Administration Dorzolamide HCl 1 drop 07/12/17 12:00 Trusopt 2% OU BID NATHAN Dextrose/Sodium Chloride 1,000 mls @ 100 mls/hr 07/10/17 21:15 07/12/17 07:45 D5-Ns - IV 100 mls/hr ASDIR NATHAN Administration Famotidine/Sodium Chloride 20 mg in 50 mls @ 100 mls/hr 07/10/17 21:15 10:08 Pepcid 20 Mg Premixed Ivpb - IVPB 100 mls/hr BID NATHAN Administration Levetiracetam 500 mg 07/10/17 12:00 07/12/17 10:04 Keppra Injection - IVPB 500 mg BID NATHAN Administration Lorazepam 1 mg 07/10/17 23:47 07/12/17 03:34 Ativan Injection - IVPUSH 1 mg Q6H PRN Administration ANXIETY Metoprolol Tartrate 5 mg 07/11/17 02:00 07/12/17 03:46 Lopressor Injection - IVPUSH 5 mg Q4H PRN Administration SBP > 180 Non-Formulary Medication 1 drop 07/12/17 22:00 Tafluprost/Pf [Zioptan 0.0015% Eye Drops] OU HS NATHAN Timolol Maleate 1 drop 07/12/17 12:00 Timoptic 0.5% OU BID NATHAN Triamcinolone Acetonide 1 applic 07/11/17 10:00 07/11/17 15:45 Aristocort 0.1% Ointment - TP 1 applic DAILY NATHAN Administration ASSESSMENT/PLAN: Pt is a 67 M with PMH HTN, GERD, right eye glaucoma (s/p surgery), arthritis, psoriasis, and Lyme disease who presented with fiance and son to the emergency department with worsening dizziness and confusion. In ED there was concern that pt wouldn't be able to protect his airway, so he was sent to ICU. Pt was found to have a brain mass. As workup was initiated, family stated they wanted him transferred to another facility. [facility] was contacted and accepted transfer. Currently pending available bed. Accepting physician: Dr. Aleksander Llamas Transfer center: [phone] #Brain mass - left frontal mass found on Head CT -Per neuro, could explain symptoms - prophylactic antiepilleptic -decadron #Glaucoma -c/w eye drops: brimonidine, dorzolamide, tafluprost #Hypertension -metoprolol #Psoriasis -triamcinolone ointment #Acute Renal failure: resolved -D5W -[employer] Member now 1.2 #FEN -D5W -hyperchloremia -NPO for now #Dispo -Admit to ICU pending transfer to [facility] -Spoke with [facility] today. No bed available yet. Minh Lee MD PGY-1 ICU case discussed with attending Visit type - Emergency Visit Emergency Visit: No - New Patient This patient is new to me today: No - Critical Care Critical Care patient: Yes Total Critical Care Time (in minutes): 35 Critical Care Statement: The care of this patient involved high complexity decision making to prevent further life threatening deterioration of the patient 's condition and/or to evaluate & treat vital organ system(s) failure or risk of failure. - Discharge Referral Referred to [facility] No
[2017-07-12] MEDS ORDERED: TRIAMCINOLONE ACET 0.1% CREAM 15 GM TUBE TP SCH (11:45)
[2017-07-12] MEDS ORDERED: DORZOLAMIDE 2% HCL OPHTHALMIC SOLUTION 10 ML BOTTLE OU SCH (12:00)
[2017-07-12] MEDS ORDERED: TIMOLOL 0.5% OPHTHALMIC SOL 5 ML BOTTLE OU SCH (12:00)
[2017-07-12] MEDS ORDERED: BRIMONIDINE TARTRATE 0.1% OPHTHALMIC 5 ML BOTTLE OU SCH (14:00)
[2017-07-12] MEDS ORDERED: LABETALOL HCL 5 MG/1 ML (100MG/20 ML VIAL) IVPUSH ONE ×2 (14:02→15:00)
--- NOTE | 2017-07-12 16:41 | PN ---
Progress Note (short form) - Note Progress Note: Signout given to Neuro fellow at [facility]. Accepting physician Dr. Aleksander Llamas. Bed available in step down unit- pt for transfer at 6:30pm tonight. Will send transfer form and disc with radio images along w/ pt. Thank you Ginette Araujo MD PGY-1 ICU
[2017-07-12 17:01] VITALS: PULSE 79; TEMP 99
[2017-07-12 18:55] VITALS: BP 163/82
[2017-07-12] MEDS ORDERED: [UNRECOGNIZED DRUG - OTHER] OU SCH (22:00)
[2017-07-12] MEDS ORDERED: TAFLUPROST OU SCH (22:00)
[2017-07-12] MEDS ORDERED: PATIENT'S OWN MEDICATION (NON-FORMULARY) (Dorzolamide Hcl/Timolol Maleat [Cosopt Eye Drops OU SCH (22:00)
[2017-07-13] MEDS ORDERED: TRIAMCINOLONE ACET 0.1% CREAM 80 GM TUBE TP SCH (10:00)
--- NOTE | 2017-07-17 14:16 | EKG ---
Test Reason : Blood Pressure : / mmHG Vent. Rate : 096 BPM Atrial Rate : 096 BPM P-R Int : 154 ms QRS Dur : 116 ms QT Int : 362 ms P-R-T Axes : 070 -01 050 degrees QTc Int : 457 ms SINUS RHYTHM WITH OCCASIONAL PREMATURE VENTRICULAR COMPLEXES POSSIBLE LEFT ATRIAL ENLARGEMENT RIGHT BUNDLE BRANCH BLOCK ABNORMAL ECG NO PREVIOUS ECGS AVAILABLE Confirmed by ROXY FERRERA MD ([id number]) on 07/17/2017 2:16:29 PM Referred By: Confirmed By:ROXY FERRERA MD
== END 2017-07-12 20:25 | disposition short-term general hospital (02) | DRG 54 ==
LOC: JER 09:33 → JERBED 14:27 → JICU 20:27
PROVIDERS: ADMIT Internal Medicine; ATTEND Internal Medicine
DX: D49.6 Neoplasm of unspecified behavior of brain (principal); G93.6 Cerebral edema; I61.8 Other nontraumatic intracerebral hemorrhage; A69.20 Lyme disease, unspecified; N17.9 Acute kidney failure, unspecified; I10 Essential (primary) hypertension; K21.9 Gastro-esophageal reflux disease without esophagitis; H40.89 Other specified glaucoma; L40.8 Other psoriasis; M13.88 Other specified arthritis, other site; H53.2 Diplopia; R41.82 Altered mental status, unspecified; R11.2 Nausea with vomiting, unspecified; S00.31XA Abrasion of nose, initial encounter; S00.81XA Abrasion of other part of head, initial encounter; X58.XXXA Exposure to other specified factors, initial encounter; Y93.9 Activity, unspecified; Y92.9 Unspecified place or not applicable; Y99.9 Unspecified external cause status; E87.8 Other disorders of electrolyte and fluid balance, not elsewhere classified
CPT/HCPCS: 36415; 70450-TC; 70486-TC; 71010-TC; 80048; 80053; 80307; 81003; 81015; 82550; 83605; 83735; 84100; 84484; 85025; 85027; 85610; 85730; 87040; 87086; 93005; 93010; 99284-25; J8540